=== PATIENT | female | born 1955 | race Caucasian/White ===

== ENCOUNTER → 2016-07-13 | Outpatient (CLI) | payer BC ==
[~2016-07-13] MED LIST: CRESTOR10 MG PO; HYDROCODONE BIT1 T11 PO; MOTRIN800 MG PO; PERCOCET 325 MG1 TA2 PO; PREMARIN0.625 MG PO; REGLAN10 MG PO; SYNTHROID0.05 MG PO; ZOFRAN 4 MG ED2 TAB PO; [UNRECOGNIZED DRUG - OTHER]
== END | disposition home or self-care (01) ==
LOC: ORTHO 03:02
DX: M25.471 Effusion, right ankle (principal)